=== PATIENT | male | born 1995 | race Two or more races ===

== ENCOUNTER 2025-02-07 19:36 | Emergency (ER) | payer MEDICAID, SELFPAY ==
[2025-02-07 20:06] VITALS: BP 151/82; PULSE 71; RESP 18; TEMP 36.8; O2SAT 96
--- NOTE | 2025-02-07 20:10 | XR_ITS ---
EXAMINATION: PA chest single view TECHNIQUE: Upright PA chest single view Date and time: February 07, 20252010 hours INDICATIONS: Coughing beginning 3 weeks ago. FINDINGS: Normal heart size Lungs are clear. Osseous structures intact IMPRESSION: No active disease
[2025-02-07 20:31] VITALS: PULSE 84; RESP 19; O2SAT 99
[2025-02-07] MEDS: ALBUTEROL/IPRATROPIUM (Duoneb) RT SOL 3 ML NEBU INH (20:31)
[2025-02-07] MEDS: DEXAMETHASONE SOD PHOS INJ 10 MG/ML VIAL IM (20:35)
[2025-02-07 20:59] LABS: Influenza A Ag Negative; Influenza B Ag Negative
[2025-02-07 21:32] VITALS: RESP 18
--- NOTE | 2025-05-01 08:37 | EDNOTE_ITS ---
Upper Respiratory Inf. RME/HPI General Chief Complaint: Flu Like Symptoms Stated Complaint: CONGESTION Time Seen by Provider: 02/07/25 19:40 Arrival date/time: 02/07/25 19:36 This is a case of 29-year-old male with no medical history came into the emergency room due to productive cough and nasal congestion with mild shortness of breath Limitations: no limitations Related Data Previous Rx's ?Medication ?Instructions ?Recorded albuterol sulfate 90 mcg/actuation 2 puff inhalation Q 4H PRN 02/07/25 aerosol inhaler (Ventolin HFA) shortness of breath or wheezing #8.5 grams amoxicillin 875 mg-potassium 1 tab PO BID #20 tabs clavulanate 125 mg tablet promethazine-DM 6.25 mg-15 mg/5 mL 5 ml PO Q6H PRN cou gh #118 mL 02/07/25 oral syrup Allergies Allergy/AdvReac Type Severity Reaction Status Date / Time No Known Allergies Allergy Verified 02/07/25 19:37 Review of Systems Review of Systems Systems Reviewed: All systems reviewed, normal except as documented Past Medical History Social History SMOKING STATUS: Never smoker ED Exam General Limitations: Present no limitations General appearance: Present alert and in no apparent distress Head Head exam: Present atraumatic Eye Eye exam: Present normal appearance, PERRL and EOMI ENT ENT exam: Present normal exam, normal oropharynx, mucous membranes moist and other (HEENT exam is normal and unremarkable) Neck Neck exam: Present normal inspection, full ROM and trachea midline; Absent tenderness, meningismus, lymphadenopathy or thyromegaly Chest Chest inspection: Present normal inspection and symmetric chest wall rise; Absent tenderness Respiratory Respiratory exam: Present normal lung sounds bilaterally and wheezes (Wheezing mild no crackles no rales no rhonchi); Absent respiratory distress Cardiovascular Cardiovascular exam: Present regular rate, normal rhythm and normal heart sounds; Absent bradycardia, tachycardia, irregular rhythm, systolic murmur or diastolic murmur Abdominal Exam Abdominal exam: Present soft and normal bowel sounds Extremities Exam Extremities exam: Present normal inspection and full ROM Back Exam Back exam: Present normal inspection and full ROM Neurological Exam Neurological exam: Present alert, oriented X3, CN II-XII intact, normal gait and reflexes normal; Absent motor sensory deficit Psychiatric Psychiatric exam: Present normal affect and normal mood Skin Skin exam: Present warm, dry, intact and normal color Course Quality Measures none Orders Category Date Time Status Bedside COVID-19 Antigen Test NOW Care 02/07/25 20:10 Completed XR chest 1V Stat Exams 02/07/25 20:10 Completed Influenza A & B Rapid Panel Stat Lab 02/07/25 20:27 Completed Albuterol/Ipratr Rt Izabela [Duoneb Rt Izabela] Med 02/07/25 20:10 Discontinued 3 ml INH X1 ONE dexAMETHasone INJ [Decadron Inj] Med 02/07/25 20:10 Discontinued 10 mg IM X1 ONE Vital Signs Vital signs: Vital Signs Temperature 98.3 F 02/07/25 20:06 Pulse Rate 71 02/07/25 20:06 Respiratory Rate 18 02/07/25 20:06 Blood Pressure 151/82 H 02/07/25 20:06 Pulse Oximetry (%) 96 02/07/25 20:06 Oxygen Delivery Method Room Air 02/07/25 20:06 vs stable Upper Respiratory Infection MDM Narrative MDM Narrative:: Patient was discharged with comfortable condition walking with stable gait. Patient verbalized no further complains explained diagnosis and answered patient question. Patient is comfortable with the proposed management plan including the need to follow up with his/her primary care physician and any specialist if applicable Discussed patient for any urgent condition or worsening sx, He/She needed to go to emergency room immediately or call 911. Patient acknowledge the responsibility to follow up as instructed and to monitor her/his symptoms. For any persistence of the symptoms for more than 3-5 days return precaution advised. Discussed the result of the test and was given printed discharge instruction Patient data External records reviewed:: [facility] previous records Clinical information provided by:: patient Social determinants that could affect healthcare access:: none Patient has the following chronic illnesses:: none How is presenting disease/condition affected by chronic disease/condition?: no chronic disease Evaluation data The following diagnostics were reviewed and interpreted by me:: other (specify) (none) Lab and/or radiology exams considered but not ordered:: none Interpretation Summary: none Medications / Prescriptions Medications or Prescriptions considered but not ordered:: given Medication administrations:: Medication Administration History Discontinued Medications Albuterol/Ipratropium (Albuterol/Ipratropium (Duoneb) Rt Izabela 3 Ml Nebu) 3 ml INH X1 ONE Stop: 02/07/25 20:11 Last Admin: 11/16/25 20:31 Dose: 3 ml Documented By: Dexamethasone Sodium Phosphate (Dexamethasone Sod Phos Inj 10 Mg/Ml Vial) 10 mg IM X1 ONE Stop: 02/07/25 20:11 Last Admin: 02/07/25 20:35 Dose: 10 mg Documented By: given Consultations Consultation(s) initiated? (list below): No Diagnosis Upper Respiratory Differential Diagnosis: upper respiratory infection Most likely diagnosis given after review of the tests above:: acute bronchitis Admission Indicated Admission indicated?: not indicated Explain why admission is indicated or not indicated:: not indicated Admission Request Was there a request for admission?: No Admission Attestation Admission request attestation: not indicated Disposition Plan Disposition Plan: Discharge Discharge Attestation Discharge Attestation: The patient and all family members were given an opportunity to ask questions and understood the discharge instructions. Discharge instructions specifically effects, indications for sooner follow up or return to the emergency department, and the expected course of current diagnosis. Patient condition: Stable Discharge Plan Plan Patient Disposition: HOME (Self Care) Patient condition on transfer: Stable Prescriptions/Referrals Prescriptions/Med Rec: New amoxicillin-pot clavulanate 875-125 mg tablet 1 tab PO BID Qty: 20 0RF promethazine-DM 6.25-15 mg/5 mL syrup 5 ml PO Q6H PRN (Reason: cough) Qty: 118 0RF albuterol sulfate [Ventolin HFA] 90 mcg/actuation HFA aerosol inhaler 2 puff inhalation Q4H PRN (Reason: shortness of breath or wheezing) Qty: 8.5 0RF Referrals: De Steen MD [Primary Care Provider, Family Practice] - In 1 week Problem List Clinical Impression: Acute bronchitis Patient/Caregiver Discharge Instructions Education Materials: ED Bronchitis with Wheezing (Adult) Additional Instructions: Follow-up with your primary care physician in 2 days for reevaluation worsening symptoms or any emergent concern call 911 or go to the nearest emergency room take your medication as directed finish the course of antibiotic increase water intake keep hydrated is advised Print Language: Cameroonian Stand Alone Forms: Kristine Award Info., Patient Portal Info Letter PA/ASHER Supervising Physician PA/ASHER Supervising Physician: Dr. [email or web address]
== END 2025-02-07 21:32 | disposition home or self-care (01) ==
PROVIDERS: Nurse Practitioner Family; Emergency Provider Emergency Medicine; PCP Family Medicine
DX: J20.9 Acute bronchitis, unspecified (principal)
CPT/HCPCS: 71045; 87502; 87635; 94640; 96372; 99284; A9270; J1100